=== PATIENT | female | born 1995 | race Caucasian/White ===

== ENCOUNTER 2019-05-17 19:07 | Emergency (ER) | payer OTHER ==
[~2019-05-17] VITALS: Ht 160 cm; Wt 74.2 kg
[~2019-05-17 19:07] MED LIST: CEPH-443 PO; METF-849 PO; NOVO7030 SC
[2019-05-17 19:12] VITALS: Ht 160 cm; Wt 74.2 kg
[2019-05-17] MEDS ORDERED: SOD CHLORIDE 0.9% 1,000 ML IV STA (19:20)
[2019-05-17] MEDS ORDERED: ACCU-CHEK XX ONE (19:30)
[2019-05-17] MEDS ORDERED: INSULIN LISPRO 100 UNIT/ML VIAL SC ONE (19:30)
[2019-05-17] MEDS ORDERED: CEFTRIAXONE 1 GM/50 ML (PMX) 50 ML IVPB ONE (20:00)
[2019-05-17 22:13] VITALS: BP 125/81; PULSE 81; RESP 19
== END 2019-05-17 22:14 | disposition home or self-care (01) ==
LOC: E/R 19:07
DX: E11.65 Type 2 diabetes mellitus with hyperglycemia (principal); N39.0 Urinary tract infection, site not specified; F17.210 Nicotine dependence, cigarettes, uncomplicated; Z79.4 Long term (current) use of insulin
CPT/HCPCS: 36415; 80053; 81001; 82962; 83690; 84703; 85025; 96372; 96374; J0696; J1815; J7030; Z7502